=== PATIENT | female | born 1990 | race Caucasian/White ===

== ENCOUNTER 2021-05-12 20:56 | Emergency (ER) | payer BC, OTHER ==
[~2021-05-12] VITALS: Ht 161 cm; Wt 109.0 kg
--- NOTE | 2021-05-12 21:05 | ED Neck-Back Pain/Injury ---
General Stated Complaint: BACK PAIN History of Present Illness Date Seen by Provider: May 12, 2021 Time Seen by Provider: 21:04 Initial Comments 30-year-old female with left lower lumbar pain. Patient was in the shower when she reports that she had her leg up on her knee and twisted funny. That she "heard a pop" now she has pain in the left lateral lumbar region. She has no midline pain. She has no numbness tingling bowel or bladder issues. She did not fall. Patient reports that it hurts to ambulate. Allergies and Home Medications Allergies Coded Allergies: No Known Drug Allergies (Unverified , 05/12/21) Patient Home Medication List Home Medication List Reviewed: Yes Review of Systems Constitutional: No chills, No fever EENTM: no symptoms reported Respiratory: no symptoms reported Cardiovascular: no symptoms reported Gastrointestinal: no symptoms reported Genitourinary: no symptoms reported Musculoskeletal: see HPI, back pain Skin: no symptoms reported Psychiatric/Neurological: No Symptoms Reported Physical Exam Vital Signs Vital Signs - First Documented 05/12/21 21:00 Temp 36.8 Pulse 99 Resp 18 B/P (MAP) 169/100 (123) Pulse Ox 97 O2 Delivery Room Air Capillary Refill : Height, Weight, BMI Height: '" Weight: lbs. oz. kg; BMI Method: General Appearance: Mild Distress HEENT: PERRL/EOMI Neck: Normal Inspection, Non Tender, Supple Cardiovascular: Regular Rate, Rhythm, No Edema Respiratory: Lungs Clear, Normal Breath Sounds Gastrointestinal: Non Tender, Soft Back: No Vertebral Tenderness, Decreased Range of Motion; No Vertebral Tenderness; Other (Tenderness to the left paraspinal and lumbar region) Neurologic/Psychiatric: Alert, Oriented x3, No Motor/Sensory Deficits, Normal Mood/Affect, photo lab specialist II-XII Norm as Tested Skin: Normal Color, Warm/Dry Progress/Results/Core Measures Results/Orders My Orders Orders - JAMEEL VALDESVOR L DO Ketorolac Injection (Toradol Injection) (05/12/21 21:12) Orphenadrine Inj (Ed Only) (Norflex Inje (05/12/21 21:12) Lumbar Spine 4 View Or More (05/12/21 21:26) Vital Signs/I&O 05/12/21 21:00 Temp 36.8 Pulse 99 Resp 18 B/P (MAP) 169/100 (123) Pulse Ox 97 O2 Delivery Room Air Progress Progress Note : Progress Note Patient with low back strain/muscle spasm. Patient does not present with any neurologic type symptoms. Patient will be given muscle relaxant anti- inflammatory and a couple hydrocodone's to help sleep. I also recommended xkot-ekf-iqisavj medications such as topical lidocaine, diclofenac along with warm moist heat or ice depending which when helps with the pain and spasm. Patient should follow with her primary care provider in 3 to 4 days if symptoms or not improving. Patient was discharged in stable condition Diagnostic Imaging Diagonstic Imaging: Xray Plain Films/CT/US/NM/MRI: other (lumbar) Comments No Acute findings LUMBAR SPINE 4 VIEW OR MORE INDICATION: Pain. EXAMINATION: Frontal, lateral and bilateral oblique lumbosacral radiographs were performed. FINDINGS: Lumbar statures are normal. The oblique view shows the pedicles and pars to be intact. No acute or chronic fracture found. The disc spaces preserved. Vertebral statures normal. No acute or suspicious endplate irregularity. IMPRESSION: Unremarkable lumbar spine series. Reviewed: Reviewed by Me, Reviewed/Discussed Departure Impression Primary Impression: Back strain Qualified Codes: S39.012A - Strain of muscle, fascia and tendon of lower back, initial encounter Disposition: HOME, SELF-CARE Condition: Stable Departure-Patient Inst. Referrals: SONNY PEDERSON APRN (PCP/Family) Primary Care Physician Patient Instructions: Low Back Pain (DC), Back Muscle Strain (DC) Add. Discharge Instructions: 4% topical lidocaine with menthol cream, gel or patch as directed on pack Diclofenac cream or gel as directed on package Warm moist heat or ice to affected area for 20 minutes 3-4 times daily depending on which one provides greater relief Scripts Hydrocodone/Acetaminophen (Hydrocodone-Acetamin 5-325 mg) 1 Each Tablet 1 TAB PO Q12H PRN for PAIN-MODERATE (5-7), #10 TAB Prov: JESUS VALDES DO 05/12/21 Naproxen (Naprosyn) 500 Mg Tablet 500 MG PO BID, #30 TAB 0 Refills Prov: JESUS VALDES DO 05/12/21 Cyclobenzaprine HCl (Cyclobenzaprine HCl) 10 Mg Tablet 10 MG PO Q8H PRN for SPASMS, #15 TAB 0 Refills Prov: JESUS VALDES DO 05/12/21 Work/School Note: Work Release Form Date Seen in the Emergency Department: May 12, 2021 Return to Work: May 14, 2021 JESUS VALDES DO May 12, 2021 21:05
[2021-05-12] MEDS ORDERED: KETOROLAC 60 MG/2 ML VIAL IM STA (21:12)
[2021-05-12] MEDS ORDERED: ORPHENADRINE 60 MG/2 ML (NORFLEX) AMP (ED ONLY) IM STA (21:12)
--- NOTE | 2021-05-12 22:08 | Diagnostic Imaging Report ---
INDICATION: Pain. EXAMINATION: Frontal, lateral and bilateral oblique lumbosacral radiographs were performed. FINDINGS: Lumbar statures are normal. The oblique view shows the pedicles and pars to be intact. No acute or chronic fracture found. The disc spaces preserved. Vertebral statures normal. No acute or suspicious endplate irregularity. IMPRESSION: Unremarkable lumbar spine series. Dictated by: Dictated on workstation # [id number]
[2021-05-12] MEDS ORDERED: CYCL10TA9 PO (22:25)
[2021-05-12] MEDS ORDERED: NAPR-1071 PO (22:25)
[2021-05-12] MEDS ORDERED: ACHD5005 PO (22:25)
[2021-05-12] MEDS ORDERED: HYDROcodone/APAP 5 MG/325 MG (LORTAB) TAB PO ONE (22:30)
[2021-05-12 22:41] VITALS: BP 166/80
== END 2021-05-12 22:41 | disposition home or self-care (01) ==
LOC: ER FS 20:57
DX: S39.012A Strain of muscle, fascia and tendon of lower back, initial encounter (principal); X50.1XXA Overexertion from prolonged static or awkward postures, initial encounter
CPT/HCPCS: 72110

== ENCOUNTER 2022-03-01 23:43 | Inpatient (IN) | payer BC, OTHER ==
[~2022-03-01] VITALS: Ht 160 cm; Wt 116.5 kg
[~2022-03-01 23:43] MED LIST: ACHD5005 PO; CYCL10TA25 PO; NAPR-1071 PO
[2022-03-01] MEDS ORDERED: NALOXONE 0.4 MG/ML 1 ML (NARCAN) VIAL IV STA (23:50)
[2022-03-01] MEDS ORDERED: NS IV 1000 ML 1,000 ML ONE (23:51)
[2022-03-01] MEDS: NS IV 1000 ML 1,000 ML IV SCH ×2 (23:54→23:57)
[2022-03-01 23:58] LABS: BASOPHILS % (AUTO) 0 % (0-10); EOSINOPHILS # (AUTO) 0.3 10^3/uL (0.0-0.3); EOSINOPHILS % (AUTO) 2 % (0-10); HEMATOCRIT 39 % (35-52); HEMOGLOBIN 13.3 g/dL (11.5-16.0); LYMPHOCYTES # (AUTO) 5.4 10^3/uL (1.0-4.0); LYMPHOCYTES % (AUTO) 46 % (12-44); MEAN CORPUSCULAR HEMOGLOBIN 31 pg (25-34); MEAN CORPUSCULAR HGB CONC 34 g/dL (32-36); MEAN CORPUSCULAR VOLUME 90 fL (80-99); MONOCYTES # (AUTO) 0.7 10^3/uL (0.0-1.0); MONOCYTES % (AUTO) 6 % (0-12); NEUTROPHILS # (AUTO) 5.3 10^3/uL (1.8-7.8); NEUTROPHILS % (AUTO) 45 % (42-75); PLATELET COUNT 276 10^3/uL (130-400); WHITE BLOOD COUNT 11.8 10^3/uL (4.3-11.0)
[2022-03-02] LABS: BILIRUBIN,URINE NEGATIVE (NEGATIVE); CLARITY,URINE CLEAR; GLUCOSE, URINE (UA) NEGATIVE (NEGATIVE); KETONES,URINE NEGATIVE (NEGATIVE); LEUKOCYTE ESTERASE ,URINE NEGATIVE (NEGATIVE); NITRITE,URINE NEGATIVE (NEGATIVE); PROTEIN,URINE NEGATIVE (NEGATIVE)
--- NOTE | 2022-03-02 00:04 | ED Psychosocial ---
General Stated Complaint: POSS OD Source: family History of Present Illness Date Seen by Provider: Mar 01, 2022 Time Seen by Provider: 23:43 Initial Comments 31-year-old female presenting with family who brought her in after they had received a text at 2301 that said "just know that I love you." He reports that she has been drinking margsugeytas tonight. She had several pill bottles beside her and he was unsure if she had taken any of the pills or which ones. She said "i can't do this anymore". Otherwise she was not answering questions and was having sonorous respirations but awakens to voice and touch. Timing/Duration: just prior to arrival Associated Symptoms: ingestion Allergies and Home Medications Allergies Coded Allergies: No Known Drug Allergies (Unverified , 05/12/21) Patient Home Medication List Home Medication List Reviewed: Yes Cyclobenzaprine HCl (Cyclobenzaprine HCl) 10 Mg Tablet, 10 MG PO Q8H PRN for SPASMS Prescribed by: JESUS VALDES on 05/12/212224 Hydrocodone/Acetaminophen (Hydrocodone-Acetamin 5-325 mg) 1 Each Tablet, 1 TAB PO Q12H PRN for PAIN-MODERATE (5-7) Prescribed by: JESUS VALDES on 05/12/212225 Naproxen (Naprosyn) 500 Mg Tablet, 500 MG PO BID Prescribed by: JESUS VALDES on 05/12/212224 Review of Systems Constitutional: see HPI Unable to obtain ROS due to patient being somnolent and not answering questions Past Jrpbfnr-Gdvolk-Ngtoqw Hx Patient Social History Alcohol Use?: Yes Alcohol type: Hard Liquor Physical Exam Vital Signs - First Documented 03/01/22 03/01/22 23:45 23:50 Temp 36.0 Pulse 87 Resp 19 B/P (MAP) 100/59 (73) Pulse Ox 93 O2 Delivery Room Air O2 Flow Rate 4.00 Capillary Refill : Height, Weight, BMI Height: '" Weight: lbs. oz. kg; 42.00 BMI Method: General Appearance: obese HEENT: pharynx normal, other (pinpoint pupils bilaterally) Neck: non-tender, full range of motion, supple, normal inspection Respiratory: chest non-tender, lungs clear, normal breath sounds, no respiratory distress, no accessory muscle use Cardiovascular: normal peripheral pulses, regular rate, rhythm Gastrointestinal: normal bowel sounds, non tender, soft, no pulsatile mass Extremities: normal range of motion, non-tender, normal capillary refill Neurologic/Psychiatric: other (somnolent and awakens to voice and touch but not consistent with answering questions) Appearance/Memory: disheveled Behavior/Eye Contact: other (somnolent and not waking up enough to answer and cooperate) Skin: warm/dry Suicide Risk Suicide Risk Suicide Risk Level / RN Screen: High Low Suicide Risk Level []Suicidal Ideation WITHOUT method, intent, plan or behavior more than a month ago []]Modifiable risk factors and strong protective factors []No reported history of suicidal ideation or behavior []Patient reports/exhibits symptoms consistent with psychosis []Patient reports a plan that would be unrealistic/impossible to complete and intent []Suicide attempt prior to arrival (Indicates at LEAST Low Suicide Risk, c onsider other risk factors) Moderate Suicide Risk Level: []Suicidal ideation with method, WITHOUT plan, intent or behavior in the past month []Multiple risk factors and few protective factors []Patient reports intent to follow through on plan to end life if allowed to leave hospital, and has attempted to elope from the hospital High Suicide Risk Level: [x] Suicidal ideation with intent or intent with a plan in the past month [x] Patient has harmed self or attempted suicide while in the hospital [] Patient has hx of or current Command Auditory hallucinations to harm self or others that they follow without hesitation [] Patient refuses to disclose plan, and indicates intent to complete [] Patient reports plan that is possible to accomplish and/or has means to complete Risk factors supporting recommendation: [] Non-compliance with treatment (acute or chronic) [] Patient has access to or owns firearms and/or stockpiled medications [x] Hx Impulsive behavior [] Pending incarceration or homelessness [] Sexual abuse [] Family history and/or exposure to suicide [] Adverse childhood experiences [] Exposure to violence or negative socio-political cultural, and economic forces [x] Current or hx of substance use/abuse [] Chronic physical pain or other acute medical problem (AIDS, COPD, Cancer, etc) [] Perceived burden on family or others [] Patient has attempted to elope [x] Unable to answer and/or unable to identify [] Refuses to agree to a safety plan Protective Factors supporting recommendation: [] Identifies reasons for living [] Future plans/goals [] Engaged in work or School [] Good family support network [] Good social support network [] Responsibility to family [] Belief that suicide is immoral, against their rastafari beliefs [] High spirituality and involvement in tenriism community [] Fear of or dying due to pain and suffering [] Established outpt psychiatric services [x] Unable to answer and/or unable to identify Risk Assessment Tool Score: High Progress/Results/Core Measures Results/Orders Lab Results Laboratory Tests Test 03/01/22 23:52 03/02/22 00:00 Range/Units White Blood Count 11.8 H 4.3-11.0 10^3/uL Red Blood Count 4.32 3.80-5.11 10^6/uL Hemoglobin 13.3 11.5-16.0 g/dL Hematocrit 39 35-52 % Mean Corpuscular Volume 90 80-99 fL Mean Corpuscular Hemoglobin 31 25-34 pg Mean Corpuscular Hemoglobin Concent 34 32-36 g/dL Red Cell Distribution Width 12.9 10.0-14.5 % Platelet Count 276 130-400 10^3/uL Mean Platelet Volume 9.0 9.0-12.2 fL Immature Granulocyte % (Auto) 0 % Neutrophils (%) (Auto) 45 42-75 % Lymphocytes (%) (Auto) 46 H 12-44 % Monocytes (%) (Auto) 6 0-12 % Eosinophils (%) (Auto) 2 0-10 % Basophils (%) (Auto) 0 0-10 % Neutrophils # (Auto) 5.3 1.8-7.8 10^3/uL Lymphocytes # (Auto) 5.4 H 1.0-4.0 10^3/uL Monocytes # (Auto) 0.7 0.0-1.0 10^3/uL Eosinophils # (Auto) 0.3 0.0-0.3 10^3/uL Basophils # (Auto) 0.0 0.0-0.1 10^3/uL Immature Granulocyte # (Auto) 0.0 0.0-0.1 10^3/uL Urine Color PALE YELLOW Urine Clarity CLEAR Urine pH 6.0 5-9 Urine Specific [place] <=1.005 1.016-1.022 Urine Protein NEGATIVE NEGATIVE Urine Glucose (UA) NEGATIVE NEGATIVE Urine Ketones NEGATIVE NEGATIVE Urine Nitrite NEGATIVE NEGATIVE Urine Bilirubin NEGATIVE NEGATIVE Urine Urobilinogen 0.2 < = 1.0 MG/DL Urine Leukocyte Esterase NEGATIVE NEGATIVE Urine RBC (Auto) NEGATIVE NEGATIVE Urine RBC NONE /HPF Urine WBC RARE /HPF Urine Squamous Epithelial Cells 0-2 /HPF Urine Crystals NONE /LPF Urine Bacteria TRACE /HPF Urine Casts NONE /LPF Urine Mucus NEGATIVE /LPF Urine Culture Indicated NO Urine Test NEGATIVE NEGATIVE Sodium Level 135 135-145 MMOL/L Potassium Level 3.7 3.6-5.0 MMOL/L Chloride Level 101 98-107 MMOL/L Carbon Dioxide Level 21 21-32 MMOL/L Anion Gap 13 5-14 MMOL/L Blood Urea Nitrogen 9 7-18 MG/DL Creatinine 0.72 0.60-1.30 MG/DL Estimat Glomerular Filtration Rate 114 BUN/Creatinine Ratio 13 Glucose Level 113 H 70-105 MG/DL Calcium Level 9.0 8.5-10.1 MG/DL Corrected Calcium 8.8 8.5-10.1 MG/DL Total Bilirubin 0.3 0.1-1.0 MG/DL Aspartate Amino Transf (AST/SGOT) 17 5-34 U/L Alanine Aminotransferase (ALT/SGPT) 19 0-55 U/L Alkaline Phosphatase 61 40-136 U/L Total Protein 6.7 6.4-8.2 GM/DL Albumin 4.2 3.2-4.5 GM/DL Salicylates Level < 0.3 L 5.0-20.0 MG/DL Urine Opiates Screen NEGATIVE NEGATIVE Urine Oxycodone Screen NEGATIVE NEGATIVE Urine Methadone Screen NEGATIVE NEGATIVE Urine Propoxyphene Screen NEGATIVE NEGATIVE Acetaminophen Level 17 10-30 UG/ML Urine Barbiturates Screen NEGATIVE NEGATIVE Ur Tricyclic Antidepressants Screen NEGATIVE NEGATIVE Urine Phencyclidine Screen NEGATIVE NEGATIVE Urine Amphetamines Screen NEGATIVE NEGATIVE Urine Methamphetamines Screen NEGATIVE NEGATIVE Urine Benzodiazepines Screen NEGATIVE NEGATIVE Urine Cocaine Screen NEGATIVE NEGATIVE Urine Cannabinoids Screen NEGATIVE NEGATIVE Serum Alcohol 85 H <10 MG/DL Influenza Type A (RT-PCR) Not Detected Not Detecte Influenza Type B (RT-PCR) Not Detected Not Detecte SARS-CoV-2 RNA (RT-PCR) Detected H Not Detecte Smear Scan OK Blood Gas Puncture Site LT RADIAL Blood Gas Patient Temperature 36 C Arterial Blood pH 7.35 L 7.37-7.43 Arterial Blood Partial Pressure CO2 45 35-45 MMHG Arterial Blood Partial Pressure O2 39 *L 79-93 MMHG Arterial Blood HCO3 25 23-27 MMOL/L Arterial Blood Total CO2 26.2 21.0-31.0 MMOL/L Arterial Blood Oxygen Saturation 70 L 94-100 % Arterial Blood Base Excess -1.1 -2.5-2.5 MMOL/L Viral Test OK Blood Gas Ventilator Setting NO Blood Gas Inspired Oxygen 2 LITERS My Orders Orders - HEBER BARNETT MD Ua Culture If Indicated (03/01/22 23:50) Cbc With Automated Diff (03/01/22 23:50) Comprehensive Metabolic Panel (03/01/22 23:50) Alcohol (03/01/22 23:50) Drug Screen Stat (Urine) (03/01/22:50) Acetaminophen (03/01/22:50) Salicylate (03/01/22:50) Ekg Tracing (03/01/22 23:50) Ed Iv/Invasive Line Start (03/01/22 23:50) Monitor-Rhythm Ecg Trace Only (03/01/22 23:50) Bh Status Checks/Observation Q15M (03/01/22 23:50) Ns Iv 1000 Ml (Sodium Chloride 0.9%) (03/02/22 00:00) Naloxone Injection (Narcan Injection) (03/01/22 23:50) Feliz Cath (03/01/22 23:51) Covid 19 Inhouse Test (03/01/22 23:51) Influenza A And B By Pcr (03/01/22 23:51) Isolation Central Supply Req (03/01/22 23:51) Ns Iv 1000 Ml (Sodium Chloride 0.9%) (03/01/22 23:51) Arterial Blood Gas (03/02/22 00:06) Chest 1 View Ap/Pa Only (03/02/22 00:06) Arterial Blood Gas (03/02/22 00:00) Hcg,Qualitative Urine (03/02/22 00:20) Ns Iv 1000 Ml (Sodium Chloride 0.9%) (03/02/22 01:05) Ns Iv 1000 Ml (Sodium Chloride 0.9%) (03/02/22 01:08) Dexamethasone Injection (Decadron Inje (03/02/22 01:29) Hcg,Qualitative Urine (03/02/22 01:34) Vital Signs/I&O 03/01/22 03/01/22 03/02/22 03/02/22 23:45 23:50 00:00 00:05 Temp 36.0 Pulse 87 75 85 87 Resp 19 19 17 17 B/P (MAP) 100/59 (73) 87/39 103/49 108/52 Pulse Ox 93 94 94 97 O2 Delivery Room Air Nasal Cannula Nasal Cannula Nasal Cannula O2 Flow Rate 4.00 4.00 4.00 03/02/22 03/02/22 03/02/22 03/02/22 00:15 00:25 01:00 01:30 Pulse 82 84 81 84 Resp 18 19 18 18 B/P (MAP) 115/59 115/66 97/44 76/50 Pulse Ox 99 99 97 95 O2 Delivery Nasal Cannula Nasal Cannula Nasal Cannula Nasal Cannula O2 Flow Rate 2.00 2.00 2.00 03/02/22 03/02/22 03/02/22 01:35 01:45 01:55 Pulse 81 83 78 Resp 15 17 18 B/P (MAP) 90/47 103/61 104/56 Pulse Ox 98 99 99 O2 Delivery Nasal Cannula Nasal Cannula Nasal Cannula O2 Flow Rate 2.00 Progress Progress Note #1: Progress Note Placed on supplemental oxygen and initiate IV access as well as Feliz catheter. Placed on cardiac telemetry monitoring obtain electrocardiogram to evaluate from a overdose standpoint. Administer IV fluid normal saline 1 L bolus and try Narcan dose of 0.4 mg to see if that makes any difference on her mentation and alertness. Ordered urine drug screen as well as acetaminophen, salicylate, alco hol level and basic labs to screen from a mental health standpoint. Progress Note #2: Progress Note Patient was remaining hemodynamically stable and waking to voice and touch. She had a white blood cell count at the upper limit of normal 11.8. Her chemistry panel did not show acute significant normality. Her urinalysis did not show infection. Her urine drug screen was negative. Her alcohol level was 85 and acetaminophen and salicylate were negative. ABG was a venous specimen. Her swab for flu and COVID was positive for COVID. Chest x-ray did not show any acute infiltrate. Electrocardiogram did not show acute ST elevation but mild QT prolongation Progress Note #3: Progress Note Patient was awakening more easily after midnight. She was given additional fluids to help with her blood pressure. Her alcohol level of 85 did not really explain her level of somnolence and unsure of what other medicines she may have taken. She had bottles of prescription diphenhydramine that had more pills and then were prescribed. The hydrocodone and cyclobenzaprine bottles were from May 2021. These bottles were empty. She also takes buspirone, escitalopram, gabapentin and none of these bottles were present. [address] Roman for the [facility] and she accepted the patient for ICU. I attempted to call [facility] several times but could never get the number to connect. Start Covid order set, Bridge Orders and continue suicide precautions. Initial ECG Impression Date: Mar 01, 2022 Initial ECG Impression Time: 23:46 Initial ECG Rate: 82 Initial ECG Rhythm: Normal Sinus Initial ECG Comparisson: No Previous ECG Available Comment Normal sinus rhythm with a heart rate of 82 bpm. NH interval 156 ms. QRS duration of 100 ms. Prolonged QT interval with 426 ms and QTc interval [address] elevation. No prior tracing available for comparison. Diagnostic Imaging Diagonstic Imaging: Xray Plain Films/CT/US/NM/MRI: chest Comments On my review of her 1 view chest x-ray shows no acute infiltrate or effusion Reviewed: Reviewed by Me Departure Communication (Admissions) Time/Spoke to Admitting Phy: 00:[address] Roman on-call for [facility] and she accepted the patient for ICU admission. After several attempts I was unable to reach anybody at the eICU to update them about the patient. Impression Primary Impression: Drug overdose Qualified Codes: T50.902A - Poisoning by unspecified drugs, medicaments and biological substances, intentional self-harm, initial encounter Additional Impressions: Suicidal ideation Alcohol intoxication Qualified Codes: F10.920 - Alcohol use, unspecified with intoxication, uncomplicated Disposition: 30 STILL A PATIENT Condition: Critical Admissions Decision to Admit Reason: Admit from ER (General) Decision to Admit/Date: Mar 02, 2022 Time/Decision to Admit Time: 00:43 Departure-Patient Inst. Referrals: SONNY PEDERSON APRN (PCP/Family) Primary Care Physician HEBER BARNETT MD Mar 02, 2022 00:04
[2022-03-02 00:10] LABS: AMPHETAMINE SCREEN, URINE NEGATIVE (NEGATIVE); BARBITURATE SCREEN URINE NEGATIVE (NEGATIVE); BENZODIAZEPINES SCREEN URINE NEGATIVE (NEGATIVE); CANNABINOID SCREEN, URINE NEGATIVE (NEGATIVE); COCAINE SCREEN URINE NEGATIVE (NEGATIVE); METHADONE STAT NEGATIVE (NEGATIVE); OPIATE SCREEN URINE NEGATIVE (NEGATIVE); OXYCODONE STAT NEGATIVE (NEGATIVE); PROPOXYPHENE STAT NEGATIVE (NEGATIVE); TRICYCLIC ANTIDEPRESSANTS SCRE NEGATIVE (NEGATIVE)
[2022-03-02 00:20] LABS: ALANINE AMINOTRANSFERASE 19 U/L (0-55); ALKALINE PHOSPHATASE 61 U/L (40-136); BILIRUBIN,TOTAL 0.3 MG/DL (0.1-1.0); BUN/CREATININE RATIO 13; CARBON DIOXIDE 21 MMOL/L (21-32); CHLORIDE 101 MMOL/L (98-107); CREATININE SERUM 0.72 MG/DL (0.60-1.30); GFR ESTIMATED 114; GLUCOSE 113 MG/DL (70-105); POTASSIUM 3.7 MMOL/L (3.6-5.0); SODIUM 135 MMOL/L (135-145); TOTAL PROTEIN 6.7 GM/DL (6.4-8.2)
[2022-03-02 00:21] LABS: ACETAMINOPHEN 17 UG/ML (10-30); ALBUMIN 4.2 GM/DL (3.2-4.5); SALICYLATE < 0.3 MG/DL (5.0-20.0)
[2022-03-02 00:28] LABS: BACTERIA,URINE TRACE /HPF; COLOR,URINE PALE YELLOW; SQUAMOUS EPITHELIAL CELL,UR 0-2 /HPF; WBC,URINE RARE /HPF
[2022-03-02 00:33] LABS: SMEAR SCAN COMMENT OK
[2022-03-02 00:46] LABS: ABG PCO2 45 MMHG (35-45); ABG PH 7.35 (7.37-7.43)
[2022-03-02 00:47] LABS: ABG BASE EXCESS -1.1 MMOL/L (-2.5-2.5); ABG OXYGEN SATURATION 70 % (94-100); ABG PO2 39 MMHG (79-93); ABG TCO2 26.2 MMOL/L (21.0-31.0)
[2022-03-02 00:48] LABS: ALLENS TEST OK; INSPIRED O2 2 LITERS; PATIENT TEMP 36 C; VENTILATOR NO
[2022-03-02] MEDS ORDERED: NS IV 1000 ML 1,000 ML ONE (01:05)
[2022-03-02] MEDS ORDERED: NS IV 1000 ML 1,000 ML IV STA (01:08)
[2022-03-02] MEDS ORDERED: LACTATED RINGERS 1,000 ML IV ONE (03:00)
[2022-03-02] MEDS ORDERED: ONDANSETRON 4 MG (ZOFRAN) ORAL DISSOLVE TAB PO PRN (03:15)
[2022-03-02] MEDS ORDERED: ONDANSETRON 4 MG/2 ML (SDV) Z0FRAN IV PRN (03:15)
[2022-03-02] MEDS ORDERED: ACETAMINOPHEN 650 MG SUPP (TYLENOL) PR PRN (03:15)
[2022-03-02] MEDS ORDERED: guaiFENesin SYRUP 100 MG/5 ML 10 ML (ROBITUSSIN SF) PO PRN (03:15)
[2022-03-02] MEDS ORDERED: RT-ALBUTEROL HFA 8.5 GM INHALER IH PRN (03:15)
[2022-03-02] MEDS ORDERED: ACETAMINOPHEN 325 MG TABLET PO PRN (03:15)
[2022-03-02] MEDS ORDERED: LACTATED RINGERS 1,000 ML IV SCH (03:15)
[2022-03-02 03:47] VITALS: BP 100/59
[2022-03-02] MEDS ORDERED: KCL 20 MEQ TAB (K-DUR) PO SCH (06:00)
[2022-03-02] MEDS ORDERED: MAGNESIUM 1 GM/100 ML IVPB 100 ML IV SCH (06:00)
[2022-03-02] MEDS ORDERED: POTASSIUM CL 10MEQ/50ML IVPB 50 ML IV SCH (06:00)
[2022-03-02 06:11] LABS: BASOPHILS % (AUTO) 1 % (0-10); EOSINOPHILS % (AUTO) 1 % (0-10); HEMATOCRIT 41 % (35-52); HEMOGLOBIN 13.4 g/dL (11.5-16.0); LYMPHOCYTES # (AUTO) 1.1 10^3/uL (1.0-4.0); LYMPHOCYTES % (AUTO) 18 % (12-44); MEAN CORPUSCULAR HEMOGLOBIN 31 pg (25-34); MEAN CORPUSCULAR HGB CONC 33 g/dL (32-36); MEAN CORPUSCULAR VOLUME 93 fL (80-99); MEAN PLATELET VOLUME 9.2 fL (9.0-12.2); MONOCYTES # (AUTO) 0.2 10^3/uL (0.0-1.0); MONOCYTES % (AUTO) 3 % (0-12); NEUTROPHILS % (AUTO) 78 % (42-75); PLATELET COUNT 245 10^3/uL (130-400); WHITE BLOOD COUNT 6.4 10^3/uL (4.3-11.0)
[2022-03-02 06:15] LABS: POTASSIUM 5.5 MMOL/L (3.6-5.0)
[2022-03-02 06:16] LABS: CALCIUM 8.3 MG/DL (8.5-10.1)
[2022-03-02 06:17] LABS: TOTAL PROTEIN 6.8 GM/DL (6.4-8.2)
[2022-03-02 06:19] LABS: BILIRUBIN,TOTAL 0.3 MG/DL (0.1-1.0)
[2022-03-02 06:20] LABS: PHOSPHORUS 2.5 MG/DL (2.3-4.7)
[2022-03-02] MEDS: dexAMETHasone 6 MG TAB (DECADRON) PO SCH (06:20)
[2022-03-02 06:21] LABS: CREATININE SERUM 0.72 MG/DL (0.60-1.30)
[2022-03-02 06:24] LABS: MAGNESIUM 1.8 MG/DL (1.6-2.4)
--- NOTE | 2022-03-02 07:03 | Diagnostic Imaging Report ---
EXAMINATION: Chest radiograph, portable AP view. DATE: 03/02/2022 12:19 AM INDICATION: 31-year-old female, overdose. Decreased responsiveness. COMPARISON: {Day minus 1} FINDINGS: There are technical limitations of the exam relating to patient body habitus and difficulties with exposure. Heart size and mediastinal contours are grossly unremarkable. There is no identified pneumothorax. There is no large pleural effusion. There is no identified focal airspace consolidation. IMPRESSION: 1. No identified acute cardiopulmonary abnormality. Dictated by: Dictated on workstation # [id number]
[2022-03-02] MEDS: UMECLIDINIUM BROMIDE (INCRUSE ELLIPTA) 7'S IH SCH (07:40)
[2022-03-02] MEDS ORDERED: RT-ALBUTEROL HFA 8.5 GM INHALER IH SCH (09:00)
[2022-03-02] MEDS: ENOXAPARIN 40 MG/0.4 ML (LOVENOX) SYR SC SCH ×2 (09:14→20:35)
[2022-03-02] MEDS: RT-ALBUTEROL HFA 8.5 GM INHALER IH SCH ×3 (11:03→19:02)
--- NOTE | 2022-03-02 13:21 | Short Stay Summary-Hospitalist ---
JOLEEN COPELAND A MED STUDENT 03/02/22 1321: History of Present Illness HPI/Chief Complaint Beena is a 31 yo female admitted early on 03/02 from ED for suicidal attempt via overdose and COVID 19. Pt was reportedly not responsive to verbal or physical stimulation in ED, so s/o provided most of the report. Pt reportedly has a hx of depression and takes buspar, lexapro, trazadone and benadryl daily. Upon examination this morning, pt was easy to wake and able to provide a hx of what happened the night before. Pt states she thinks she took hydrocodone and cyclobenzaprine, but she just "mixed a bunch of stuff". Pt denies overdosing on SSRIs. Pt reports she sees a Mario Wilkins, machine puller at [facility], last seen 2 mo ago with no medication changes. Pt reports significant amount of stress lately, which contributed to her suicidal attempt. This morning she is feeling better, but tired and her mood has improved. Pt was found to have COVID in the ED, so she was started on decadron, lactated ringers solution and lovenox. Pt's hospital course was unremarkable and she was deemed medically stable for discharge on 03/02. Source: patient Date Seen 03/02/22 Time Seen by a Provider: 08:30 Attending Physician [place] Guerin Aprn PCP Admitting Physician: Griselda Carrillo DO Attending Physician: Griselda Carrillo DO Referring Physician Date of Admission Mar 02, 2022 at 02:41 Home Medications & Allergies Home Medications Reviewed patient Home Medication Reconciliation performed by pharmacy medication reconciliations radiation therapy technician and/or nursing. Patients Allergies have been reviewed. Allergies Allergies Coded Allergies No Known Drug Allergies (Vrilvonyxp31/6/21) Past Medical/Social/Family Hx Patient Social History Tobacco Use?: Yes Tobacco type used: Cigarettes Smoking Status: Current Everyday Smoker Use of E-Cig and/or Vaping dev: No Substance use?: No Alcohol Use?: Yes Alcohol type: Hard Liquor Pt stated abuse/neglect: No Immunizations Up To Date Influenza Vaccine Up-to-Date: No; Not Current First/Initial COVID19 Vaccinat: unknown Tetanus Booster (TDap): Less Than 5 Years Current Status status: No Advance Directives: No Communicates: Verbally Primary Language: Sami Preferred Spoken Language: Sami Implanted or Applied Medical D: None Review of Systems Constitutional: No chills, No fever EENTM: No hearing loss, No blurred vision Respiratory: No cough, No short of breath Cardiovascular: No chest pain, No palpitations Gastrointestinal: No abdominal pain, No nausea, No vomiting Genitourinary: No dysuria, No frequency Musculoskeletal: No back pain, No joint pain Skin: No change in color, No lesions, No lumps Psychiatric/Neurological: Anxiety, Depressed, Emotional Problems Physical Exam Physical Exam Vital Signs Vital Signs - First Documented 03/01/22 03/01/22 03/02/22 23:45 23:50 03:47 Temp 36.0 Pulse 87 Resp 19 B/P (MAP) 100/59 (73) Pulse Ox 93 O2 Delivery Room Air O2 Flow Rate 4.00 FiO2 21 Capillary Refill : Less Than 3 Seconds Height, Weight, BMI Height: '" Weight: lbs. oz. kg; 45.70 BMI Method: General Appearance: No Apparent Distress, WD/WN HEENT: PERRL/EOMI, Pharynx Normal Neck: Full Range of Motion, Normal Inspection Respiratory: Chest Non Tender, Lungs Clear Cardiovascular: Regular Rate, Rhythm, No Murmur Gastrointestinal: Normal Bowel Sounds, Non Tender, Soft Back: Normal Inspection, No CVA Tenderness Extremity: Normal Capillary Refill, Normal Inspection Neurologic/Psychiatric: Alert, Oriented x3, Depressed Affect Skin: Normal Color, Warm/Dry Lymphatic: No Adenopathy Results Results/Procedures Labs Laboratory Tests 03/01/22 23:52 03/02/22 05:30 03/02/22 06:04 Patient resulted labs reviewed. Short Stay Diagnosis Discharge Diagnosis-Short Stay Admission Diagnosis Suicidal attempt with overdose COVID 19 Final Discharge Diagnosis Suicidal attempt with overdose COVID 19 Conclusion Plan F/u with behavioral health at [facility] Continue prescribed home medications Contact your PCP if COVID 19 symptoms worsen Call or text suicide hotline if after clinic hours, their number is [phone]. Diagnosis/Problems Diagnosis/Problems (1) COVID-19 Status: Acute Assessment & Plan: If symptoms worsen, contact your PCP (2) Drug overdose Status: Acute Assessment & Plan: F/u with behavioral health at [facility] as soon as possible Call, text or chat with suicide hotline, their number is [phone] Qualifiers: Qualified Codes: T50.902A - Poisoning by unspecified drugs, medicaments and biological substances, intentional self-harm, initial encounter (3) Suicidal ideation Status: Acute Assessment & Plan: Suicide hotline= [phone] GRISELDA CARRILLO DO 03/03/22 0541: History of Present Illness Source: patient Past Medical/Social/Family Hx Patient Social History Marrital Status: single Employed/Student: unemployed Past Medical History Depression Review of Systems Constitutional: see HPI Physical Exam Physical Exam General Appearance: No Apparent Distress, WD/WN Respiratory: Chest Non Tender, Lungs Clear, Normal Breath Sounds, No Accessory Muscle Use, No Respiratory Distress Cardiovascular: Regular Rate, Rhythm, No Edema, No Gallop, No JVD, No Murmur, Normal Peripheral Pulses Neurologic/Psychiatric: Alert, Oriented x3, No Motor/Sensory Deficits, De pressed Affect Short Stay Diagnosis Discharge Diagnosis-Short Stay Admission Diagnosis Suicide attempt COVID Final Discharge Diagnosis Suicide attempt COVID Conclusion Plan Inpatient psych needed Supervisory-Addendum Brief Verification & Attestation Participated in pt care: history, MDM, physical Personally performed: exam, history, MDM, supervision of care Care discussed with: Medical Student Procedures: n/a Results interpretation: Verified all documentation Verification and Attestation of Medical Student E/M Service A medical student performed and documented this service in my presence. I reviewed and verified all information documented by the medical student and made modifications to such information, when appropriate. I personally performed the physical exam and medical decision making. Griselda Carrillo, Mar 03, 2022,05:40 JOLEEN COPELAND MED STUDENT Mar 02, 2022 13:21 GRISELDA CARRILLO DO Mar 03, 2022 05:41
[2022-03-02] MEDS ORDERED: ESCI20TA39 PO (14:08)
[2022-03-02] MEDS ORDERED: SUMA100T3 PO (14:08)
[2022-03-02] MEDS ORDERED: GBPN600T PO (14:08)
[2022-03-02] MEDS ORDERED: BUSP30TA2 PO (14:08)
[2022-03-02] MEDS ORDERED: TRAZ-227 PO (14:08)
[2022-03-02] MEDS ORDERED: DIPH-958 PO (14:08)
[2022-03-02 19:52] VITALS: BP 103/65
[2022-03-03] VITALS: BP 107/70
[2022-03-03 04:00] VITALS: BP 106/69
[2022-03-03 05:40] LABS: BASOPHILS % (AUTO) 0 % (0-10); EOSINOPHILS % (AUTO) 0 % (0-10); HEMATOCRIT 39 % (35-52); HEMOGLOBIN 12.9 g/dL (11.5-16.0); LYMPHOCYTES # (AUTO) 2.1 10^3/uL (1.0-4.0); LYMPHOCYTES % (AUTO) 12 % (12-44); MEAN CORPUSCULAR HEMOGLOBIN 31 pg (25-34); MEAN CORPUSCULAR HGB CONC 33 g/dL (32-36); MEAN CORPUSCULAR VOLUME 93 fL (80-99); MEAN PLATELET VOLUME 9.4 fL (9.0-12.2); MONOCYTES # (AUTO) 0.8 10^3/uL (0.0-1.0); MONOCYTES % (AUTO) 5 % (0-12); NEUTROPHILS # (AUTO) 14.9 10^3/uL (1.8-7.8); NEUTROPHILS % (AUTO) 83 % (42-75); PLATELET COUNT 256 10^3/uL (130-400)
[2022-03-03] MEDS: dexAMETHasone 6 MG TAB (DECADRON) PO SCH (05:49)
[2022-03-03 05:55] LABS: ALBUMIN 3.6 GM/DL (3.2-4.5); POTASSIUM 4.5 MMOL/L (3.6-5.0)
[2022-03-03 05:57] LABS: TOTAL PROTEIN 6.2 GM/DL (6.4-8.2)
[2022-03-03 05:59] LABS: BILIRUBIN,TOTAL 0.3 MG/DL (0.1-1.0)
[2022-03-03 06:01] LABS: CREATININE SERUM 0.7 MG/DL (0.60-1.30)
[2022-03-03 06:03] LABS: BAND NEUTROPHILS 1 %; LYMPHOCYTES % (MANUAL) 10 %; MONOCYTES % (MANUAL) 3 %; NEUTROPHILS % (MANUAL) 86 %; RBC MORPH NORMAL
[2022-03-03] MEDS ORDERED: diphenhydrAMINE 25 MG TAB (BENADRYL) PO PRN (06:15)
[2022-03-03] MEDS ORDERED: SUMAtriptan 50 MG (IMITREX) TAB PO PRN (06:15)
[2022-03-03 07:22] VITALS: BP 111/72
[2022-03-03] MEDS: RT-ALBUTEROL HFA 8.5 GM INHALER IH SCH ×2 (07:57→10:27)
[2022-03-03] MEDS: UMECLIDINIUM BROMIDE (INCRUSE ELLIPTA) 7'S IH SCH (07:58)
[2022-03-03] MEDS: ENOXAPARIN 40 MG/0.4 ML (LOVENOX) SYR SC SCH (08:24)
[2022-03-03] MEDS ORDERED: GABAPENTIN 600 MG (NEURONTIN) TAB PO SCH (09:00)
[2022-03-03] MEDS ORDERED: busPIRone 15 MG (BUSPAR) TABLET PO SCH (09:00)
--- NOTE | 2022-03-03 11:23 | Pulmonary Consultation ---
History of Present Illness History of Present Illness Date Seen by Provider: Mar 03, 2022 Time Seen by Provider: 10:00 History of Present Illness She is a 31-year-old female with past medical history of morbid obesity and depression admitted via emergency room after she reportedly was drinking moderate does and she had a several pulm nodules and suspected to be off overdose. Apparently she texted that Marycruz's just know that I love you close the's. Also she is noted to be positive for COVID. Now she got all over her lethargy and she is awake alert and oriented. In view of her COVID-positive test a pulmonary consultation is requested. I made a video visit and discussed with the patient and she denies any chest pain or shortness of breath. RN examined the patient and told me that she does not have any wheezing. I have reviewed her chest x-ray which is clear. Currently she is receiving dexamethasone 6 mg daily. Allergies and Home Medications Allergies Coded Allergies: No Known Drug Allergies (Unverified , 05/12/21) Home Medications Buspirone HCl 30 Mg Tablet, 30 MG PO BID, (Reported) Diphenhydramine HCl 25 Mg Capsule, 50 MG PO HS PRN for SLEEP, (Reported) TAKES 2 (25MG) CAPS Escitalopram Oxalate 20 Mg Tablet, 20 MG PO HS, (Reported) Gabapentin 600 Mg Tablet, 600 MG PO BID, (Reported) Sumatriptan Succinate 100 Mg Tablet, 100 MG PO UD PRN for MIGRAINE, (Reported) TAKES 1 TAB AT ONSET OF SYMPTOMS AND MAY REPEAT IN 2 HOURS IF NEEDED Trazodone HCl 100 Mg Tablet, 100 MG PO HS, (Reported) Past Medical/Social/Family Hx Patient Social History Marrital Status: single Employed/Student: unemployed Tobacco Use?: Yes Tobacco type used: Cigarettes Smoking Status: Current Everyday Smoker Use of E-Cig and/or Vaping dev: No Substance use?: No Alcohol Use?: Yes Alcohol type: Hard Liquor Pt stated abuse/neglect: No Immunizations Up To Date Influenza Vaccine Up-to-Date: No; Not Current First/Initial COVID19 Vaccinat: unknown Tetanus Booster (TDap): Less Than 5 Years Current Status status: No Advance Directives: No Communicates: Verbally Primary Language: Turkmen Preferred Spoken Language: Turkmen Implanted or Applied Medical D: None Past Medical History Depression Review of Systems Constitutional: see HPI Other ROS PER RN Sepsis Event Evaluation Height, Weight, BMI Height: '" Weight: lbs. oz. kg; 45.50 BMI Method: Exam Exam Patient acknowledged, consented, and participated in this virtual visit which was conducted using real time audio/video Vital Signs Date Time Temp Pulse Resp B/P (MAP) Pulse Ox O2 Delivery O2 Flow Rate FiO2 03/03/22 10:27 95 Room Air 03/03/22 08:00 Room Air 03/03/22 07:58 95 Room Air 03/03/22 07:22 36.3 87 18 111/72 (85) 95 Room Air 03/03/22 04:00 35.7 76 18 106/69 (81) 94 Room Air 03/03/22 00:00 35.8 75 18 107/70 (82) 95 Room Air 03/02/22 20:30 95 Room Air 03/02/22 19:52 35.2 85 18 103/65 (78) 95 Room Air 03/02/22 19:02 95 Room Air 03/02/22 16:40 Room Air 03/02/22 16:00 88 16 108/46 91 Room Air 03/02/22 15:23 36.4 80 19 105/61 94 Room Air 03/02/22 14:57 100 Nasal Cannula 2.00 03/02/22 14:00 80 19 95/51 94 Room Air 03/02/22 13:00 86 17 103/60 94 Room Air 03/02/22 12:42 91 03/02/22 12:06 36.4 95 17 111/50 94 Nasal Cannula 2.00 03/02/22 12:00 Room Air 03/02/22 12:00 92 13 104/52 94 Room Air 03/02/22 11:30 Room Air I & O 03/03/22 07:00 Intake Total 1200 ml Output Total 3050 ml Balance -1850 ml Height & Weight Height: '" Weight: lbs. oz. kg; 45.50 BMI Method: General Appearance: No Apparent Distress, WD/WN HEENT: PERRL/EOMI, Pharynx Normal Neck: Full Range of Motion, Normal Inspection Respiratory: Chest Non Tender, Lungs Clear, Normal Breath Sounds, No Accessory Muscle Use, No Respiratory Distress Cardiovascular: Regular Rate, Rhythm, No Edema, No Gallop, No JVD, No Murmur, Normal Peripheral Pulses Capillary Refill: Less Than 3 Seconds Gastrointestinal: normal bowel sounds, non tender, soft, no pulsatile mass Extremity: Normal Capillary Refill, Normal Inspection Neurologic/Psychiatric: Alert, Oriented x3, No Motor/Sensory Deficits, Depressed Affect Skin: Normal Color, Warm/Dry Lymphatic: No Adenopathy Other comments PE PER RN Results Lab Laboratory Tests 03/01/22 23:52 03/02/22 05:30 03/02/22 06:04 03/03/22 05:27 Assessment/Plan Assessment/Plan 1. Suicidal ideation and depression per primary care physician 2. COVID19 infection without any evidence of pneumonia. 3. History of depression being followed by psychiatric department Recommendations 1. From pulmonary point of view she does not need any intervention for COVID19 infection just to supportive care is enough. And she could be discharged from pulmonary point of view when okay with other specialist. She does not need any steroids upon discharge. Thank you for this consultation. Critical Care: Critically Ill Patient LUCIA KELLER MD Mar 03, 2022 11:23
--- NOTE | 2022-03-03 11:39 | Discharge Summary ---
Discharge Summary Hospital Course Was the Problem List Reviewed?: Yes Problems/Dx: (1) COVID-19 Status: Acute (2) Drug overdose Status: Acute Qualifiers: Qualified Codes: T50.902A - Poisoning by unspecified drugs, medicaments and biological substances, intentional self-harm, initial encounter (3) Suicidal ideation Status: Acute Hospital Course Date of Admission: Mar 02, 2022 at 02:41 Admission Diagnosis : Family Physician/Provider: [place] Guerin Aprn Date of Discharge: 03/03/22 Discharge Diagnosis: Suicide attempt, COVID-19 infection Hospital Course: Beena is a 31 yo female admitted early on 03/02 from ED for suicidal attempt via overdose and COVID 19. Pt was reportedly not responsive to verbal or physical stimulation in ED, so s/o provided most of the report. Pt reportedly has a hx of depression and takes buspar, lexapro, trazadone and benadryl daily. Upon examination on the morning of 03/02, pt was easy to wake and able to provide a hx of what happened the night before. Pt states she thinks she took hydrocodone and cyclobenzaprine, but she just "mixed a bunch of stuff". Pt denies overdosing on SSRIs. Pt reports she sees a Mario Wilkins welder/fitter at [facility], last seen 2 mo ago with no medication changes. Pt reports significant amount of stress lately, which contributed to her suicidal attempt. Pt was found to have COVID in the ED, so she was started on decadron, lactated ringers solution and lovenox. Social work and behavior health specialist discussed options with the pt on 03/02 and advised inpatient psych placement. Pt was unsure whether this was appropriate for her. Discussed this with the pt and decision was made to d/c pt to home as she is not a danger to herself or others at this time. She is remorseful of her attempt and has a supportive at home. Pt's hospital course was unremarkable and she was deemed medically stable for discharge on 03/03. JOLEEN COPELAND STUDENT Labs and Pending Lab Test: Laboratory Tests 03/03/22 05:27: White Blood Count 18.0H, Red Blood Count 4.19, Hemoglobin 12.9, Hematocrit 39, Mean Corpuscular Volume 93, Mean Corpuscular Hemoglobin 31, Mean Corpuscular Hemoglobin Concent 33, Red Cell Distribution Width 13.1, Platelet Count 256, Mean Platelet Volume 9.4, Immature Granulocyte % (Auto) 1, Neutrophils (%) (Auto) 83H, Lymphocytes (%) (Auto) 12, Monocytes (%) (Auto) 5, Eosinophils (%) (Auto) 0, Basophils (%) (Auto) 0, Neutrophils # (Auto) 14.9H, Lymphocytes # (Au to) 2.1, Monocytes # (Auto) 0.8, Eosinophils # (Auto) 0.0, Basophils # (Auto) 0.0, Immature Granulocyte # (Auto) 0.1, Neutrophils % (Manual) 86, Lymphocytes % (Manual) 10, Monocytes % (Manual) 3, Band Neutrophils 1, Blood Morphology Comment NORMAL, Sodium Level 138, Potassium Level 4.5, Chloride Level 107, Carbon Dioxide Level 20L, Anion Gap 11, Blood Urea Nitrogen 12, Creatinine 0.70, Estimat Glomerular Filtration Rate 118, BUN/Creatinine Ratio 17, Glucose Level 116H, Calcium Level 9.0, Corrected Calcium 9.3, Magnesium Level 2.0, Total Bilirubin 0.3, Aspartate Amino Transf (AST/SGOT) 10, Alanine Aminotransferase (ALT/SGPT) 17, Alkaline Phosphatase 46, Total Protein 6.2L, Albumin 3.6 Microbiology 03/02/22 MRSA Screen - Final, Complete MRSA not isolated Home Meds Active Reported Sumatriptan Succinate 100 Mg Tablet 100 Mg PO UD PRN TAKES 1 TAB AT ONSET OF SYMPTOMS AND MAY REPEAT IN 2 HOURS IF NEEDED Buspirone HCl 30 Mg Tablet 30 Mg PO BID Escitalopram Oxalate 20 Mg Tablet 20 Mg PO HS Trazodone HCl 100 Mg Tablet 100 Mg PO HS Gabapentin 600 Mg Tablet 600 Mg PO BID Banophen (Diphenhydramine HCl) 25 Mg Capsule 50 Mg PO HS PRN TAKES 2 (25MG) CAPS Assessment/Pt Instructions Mental health appointment Discharge Planning: <30 minutes discharge planning Discharge Instructions Discharge Diet: No Restrictions Activity as Tolerated: Yes Discharge Physical Examination Vital Signs Vital Signs Date Time Temp Pulse Resp B/P (MAP) Pulse Ox O2 Delivery O2 Flow Rate FiO2 03/03/22 10:27 95 Room Air 03/03/22 07:22 36.3 87 18 111/72 (85) 03/02/22 14:57 2.00 03/02/22 03:47 21 General Appearance: No Apparent Distress, WD/WN Neurologic/Psychiatric: Alert, Oriented x3, No Motor/Sensory Deficits, Normal Mood/Affect Allergies: Coded Allergies: No Known Drug Allergies (Unverified , 05/12/21) Discharge Summary Date of Admission Mar 02, 2022 at 02:41 Date of Discharge Discharge Date: Mar 02, 2022 Admission Diagnosis Suicide attempt COVID Discharge Diagnosis Inpatient psych needed (1) COVID-19 Status: Acute Assessment & Plan: If symptoms worsen, contact your PCP (2) Drug overdose Status: Acute Assessment & Plan: F/u with behavioral health at [facility] as soon as possible Call, text or chat with suicide hotline, their number is [phone] Qualifiers: Qualified Codes: T50.902A - Poisoning by unspecified drugs, medicaments and biological substances, intentional self-harm, initial encounter (3) Suicidal ideation Status: Acute Assessment & Plan: Suicide hotline= [phone] BRITNEY CARRILLO DO Mar 03, 2022 11:39
[2022-03-03 12:08] VITALS: BP 109/71
--- NOTE | 2022-03-03 13:17 | Progress Note ---
JOLEEN COPELAND MED STUDENT 03/03/22 1317: Progress Note Beena is a 31 yo female admitted early on 03/02 from ED for suicidal attempt via overdose and COVID 19. Pt was reportedly not responsive to verbal or physical stimulation in ED, so s/o provided most of the report. Pt reportedly has a hx of depression and takes buspar, lexapro, trazadone and benadryl daily. Upon examination on the morning of 03/02, pt was easy to wake and able to provide a hx of what happened the night before. Pt states she thinks she took hydrocodone and cyclobenzaprine, but she just "mixed a bunch of stuff". Pt denies overdosing on SSRIs. Pt reports she sees a Mario Wilkins, condominium manager at [facility], last seen 2 mo ago with no medication changes. Pt reports significant amount of stress lately, which contributed to her suicidal attempt. Pt was found to have COVID in the ED, so she was started on decadron, lactated ringers solution and lovenox. Social work and behavior health specialist discussed options with the pt on 03/02 and advised inpatient psych placement. Pt was unsure whether this was appropriate for her. Discussed this with the pt and decision was made to d/c pt to home as she is not a danger to herself or others at this time. She is remorseful of her attempt and has a supportive at home. Pt's hospital course was unremarkable and she was deemed medically stable for d ischarge on 03/03. GRISELDA CARRILLO DO 03/03/222049: Supervisory-Addendum Brief Verification & Attestation Participated in pt care: history, MDM, physical Personally performed: exam, history, MDM, supervision of care Care discussed with: Medical Student Procedures: n/a Results interpretation: Verified all documentation Verification and Attestation of Medical Student E/M Service A medical student performed and documented this service in my presence. I reviewed and verified all information documented by the medical student and made modifications to such information, when appropriate. I personally performed the physical exam and medical decision making. Griselda Carrillo Mar 03, 2022,20:50 JOLEEN COPELAND MED STUDENT Mar 03, 2022 13:17 GRISELDA CARRILLO DO Mar 03, 2022 20:50
[2022-03-03 14:12] VITALS: BP 109/71
[2022-03-03] MEDS ORDERED: traZODone 100 MG (DESYREL) TAB PO SCH (21:00)
== END 2022-03-03 13:42 | disposition home or self-care (01) | DRG 917 ==
LOC: EDUNIT# 23:43 → ER FS 23:45 → ICU 03-02 02:41 → 4TH 03-02 16:26
PROVIDERS: ADMIT Internal Medicine; ATTEND Internal Medicine
PROC: 8E0ZXY6 Isolation (ICD-10-PCS; principal; 2022-03-02)
DX: T40.2X2A Poisoning by other opioids, intentional self-harm, initial encounter (principal); U07.1 COVID-19; F10.920 Alcohol use, unspecified with intoxication, uncomplicated; F32.A Depression, unspecified; T48.1X2A Poisoning by skeletal muscle relaxants [neuromuscular blocking agents], intentional self-harm, initial encounter; F17.210 Nicotine dependence, cigarettes, uncomplicated
CPT/HCPCS: 36415; 51702; 71045; 80053; 80306; 80320; 80329; 81000; 82805; 83735; 84100; 84703; 85007; 85025; 85027; 87081; 87636; 93005; 93041; 94640; 99291; G0378